=== PATIENT | female | born 1990 | race Caucasian/White ===

== ENCOUNTER 2019-02-16 09:32 | Day surgery (SDC) | payer OTHER ==
[~2019-02-16] VITALS: Ht 154.9 cm; Wt 89.4 kg
[2019-02-16] MEDS ORDERED: FERR-20 PO (10:22)
[2019-02-16] MEDS ORDERED: OMEP20TC12 PO (10:22)
[2019-02-16] MEDS ORDERED: fentaNYL 0.05 MG/ML VIAL ONE (11:26)
[2019-02-16] MEDS ORDERED: MIDAZOLAM 2 MG/2 ML VIAL ONE (11:26)
[2019-02-16] MEDS ORDERED: MIDAZOLAM 2 MG/2 ML VIAL IVP ONE (11:50)
== END 2019-02-16 12:36 | disposition home or self-care (01) ==
LOC: MDS 09:32 → MMU 09:32 → MDS 12:36
PROVIDERS: ATTEND Internal Medicine Gastroenterology
DX: K22.8 Other specified diseases of esophagus (principal); K21.9 Gastro-esophageal reflux disease without esophagitis; E66.9 Obesity, unspecified; Z68.37 Body mass index [BMI] 37.0-37.9, adult; Z90.49 Acquired absence of other specified parts of digestive tract; Z98.51 Tubal ligation status; Z98.890 Other specified postprocedural states; Z80.0 Family history of malignant neoplasm of digestive organs
CPT/HCPCS: 43235; J2250; J3010